=== PATIENT | female | born 1970 | race Caucasian/White ===

== ENCOUNTER 2018-12-16 11:38 | Emergency (ER) | payer OTHER ==
[~2018-12-16] VITALS: Ht 165.1 cm; Wt 93.0 kg
[~2018-12-16 11:38] MED LIST: PRILOSEC OTC20 MG PO
[2018-12-16 11:44] VITALS: BP 141/90
[2018-12-16] MEDS ORDERED: IBUPROFEN 800800 MG PO (16:16)
== END 2018-12-16 12:09 | disposition left against medical advice (07) ==
LOC: M.ERS 11:38
DX: R22.31 Localized swelling, mass and lump, right upper limb (principal); K21.9 Gastro-esophageal reflux disease without esophagitis; F17.200 Nicotine dependence, unspecified, uncomplicated

== ENCOUNTER 2018-12-16 14:22 | Emergency (ER) | payer OTHER ==
[~2018-12-16] VITALS: Ht 165.1 cm; Wt 93.0 kg
[2018-12-16] MEDS ORDERED: IBUPROFEN 800800 MG PO (16:16)
[2018-12-16 16:51] VITALS: BP 134/74
== END 2018-12-16 16:45 | disposition home or self-care (01) ==
LOC: M.ERS 14:22
DX: I80.01 Phlebitis and thrombophlebitis of superficial vessels of right lower extremity (principal); K21.9 Gastro-esophageal reflux disease without esophagitis; F17.200 Nicotine dependence, unspecified, uncomplicated

== ENCOUNTER → 2019-01-12 | Day surgery (SDC) | payer OTHER ==
[~2019-01-12] MED LIST changes: +BAYER CHEWABLE81 MG; +HYDROCODON-ACE1 EAC7 PO; +IBUPROFEN 800800 MG PO; +NORCO 5-325 TA1 EACH PO; +PROTONIX40 M1 PO; +ZOFRAN4 MG PO
--- NOTE | 2019-01-16 14:06 | PATH ---
[facility] [address] [place] [address] PATHOLOGY RPT PROCEDURE Name: DAJUANNEISHA MERCADO Room: [facility].#: [id number] Admission: 01/12/19 Date of : 70 Discharge: Report #: [id number] Path Case #: [id number] [facility] Accession Number: [id number] . 01 Material submitted: . GALLBLADDER . 01 Clinical history: . Pre-op diagnosis: Calculus of gallbladder with acute on chronic cholecystitis without obstruction Post-op diagnosis: Chronic cholecystitis without obstruction . 02 Diagnosis: Gallbladder: - Chronic cholecystitis and cholelithiasis. (KEYANA:pit 01/16/2019) QTP/01/16/2019 . 02 Electronically signed: . Radhames Huang MD, Pathologist NPI- [id number] . 01 Gross description: . The specimen is received in formalin, labeled "Neisha Ventura, gallbladder". Received is an intact gallbladder measuring 6.7 x 2.2 x 2.0 cm in greatest dimensions displaying a pink-mendez serosal surface. Opening the gallbladder reveals a velvety, light michaels mucosa with a gallbladder wall thickness of 0.1 cm. Calculi are present displaying a yellow-green and granular appearance, and no masses or lesions are noted grossly. Qa Manager sections, to include the proximal margin, are submitted in cassette A1. (CAA; 01/13/2019) QAC/QAC . 02 Pathologist provided ICD-10: K80.10 . 02 CPT . 474052 Specimen Comment: A courtesy copy of this report has been sent to Specimen Comment: [phone], . Specimen Comment: Report sent to / DR CHRISTIAN Performed at: [address] [id number] MD Miguel Watson MD Phone: [phone] Performed at: 02 [place] [address] PATHOLOGY RPT PROCEDURE Name: NEISHA VENTURA [facility] [id number] Admission: 01/12/19 Date of : 70 Discharge: Report #: [id number] Path Case #: [id number] [address] [place] [id number] MD Radhames Huang MD Phone: [phone]
--- NOTE | 2019-01-26 00:51 | OP ---
[address] [address] OPERATIVE REPORT Name: DAJUANLEXX ROGELIO Room: [facility].#: [id number] Admission: 01/12/19 Attend Phys: Walter Prescott DO Discharge: Date of : 70 Report #: [id number] THIS REPORT FOR: //name// CC: Walter Chaudhry [facility] DATE OF SERVICE: 01/12/2019 PREOPERATIVE DIAGNOSIS: Symptomatic cholelithiasis. POSTOPERATIVE DIAGNOSIS: Symptomatic cholelithiasis. PROCEDURE: Da Etienne robotic assisted multiport laparoscopic cholecystectomy with Firefly technology. SURGEON: Walter Prescott DO. STROBOROMA OPERATOR: Kevin Frausto DO. SECOND PHOTOGRAVURE PRESS OPERATOR: Student Dr. Terrance Rico. ANESTHESIA: General endotracheal. ESTIMATED BLOOD LOSS: Less than 20 mL. COMPLICATIONS: None. DESCRIPTION OF PROCEDURE: After obtaining proper consents and discussing risks and complications with the patient, she was taken to the operating room, laid on the supine position, administered general anesthesia. She was then prepped and draped in the usual fashion. A timeout was performed. We confirmed the appropriate patient and procedure. Preoperative antibiotics had been given. SCDs were in place. All necessary equipment was within the operating room. We then made a small supraumbilical skin incision with a #11 scalpel blade. This was carried down through the skin into the subcutaneous tissue using electrocautery for hemostasis. Once the fascia was encountered, it was incised along the midline, grasped and elevated with Howard clamps. The peritoneum was then bluntly opened using a hemostat. We then placed 2-0 Vicryl sutures in a [id number] fashion through the fascia to secure the da Etienne camera port, which was then inserted. Once the camera port was inserted, the insufflation was begun. Once insufflation was complete, full visual inspection of the anterior abdominal organs was performed. This revealed a fatty appearing liver. The gallbladder was thick walled and appeared to have a large stone in the body of the gallbladder. The patient was then placed in reverse Trendelenburg position. We then placed an 8-mm da Etienne port in [place] [address] OPERATIVE REPORT Name: LEXX GRAFF Room: [facility]#: [id number] Admission: 01/12/19 Attend Phys: Walter Prescott, DO Discharge: Date of : 70 Report #: [id number] two 8-mm trocars were placed in the right upper quadrant. We then docked the da Etienne robot. Once the robot was docked, we inserted a hook cautery in the left upper quadrant and two Cadiere graspers were placed in the right upper quadrant. I then broke scrub and went on consult. Once on consult, I was able to elevate the gallbladder and identify Laura's pouch. Laura's pouch was then grasped and elevated. I then used the Firefly technology to identify the cystic duct before any dissection of the hepatoduodenal ligament was performed. We could also visualize the common hepatic duct and common bile duct using this and they were well out of the way of the surgical procedure. I then began taking down the hepatoduodenal ligament from the gallbladder downward using both blunt and sharp dissection with the hook cautery. Once I was able to identify the cystic duct as it coursed directly into the gallbladder, I confirmed with Firefly technology and obtained a critical view of safety including the cystic duct, cystic artery, common hepatic duct and common bile duct. This was confirmed both with direct vision and Firefly technology immunofluorescence. I then placed two clips proximally and one clip distally on the cystic duct. The cystic artery was attaching quite high on the gallbladder, so I dissected the gallbladder off further before I clipped the cystic artery proximally and distally and then divided it. The gallbladder was then removed from the liver bed using electrocautery. Once this was done, we checked the cystic duct and cystic artery stumps and liver bed for any leak or bleeding. I again used immunofluorescence with Firefly technology to assure that there was no biliary leaking. Finding none, I then held the gallbladder up, so my assistant dean could grasp it with an alligator grasper. I then rescrubbed and went back to the patient's bedside. The da Etienne robot was undocked. The gallbladder was placed into a 5-mm Endopouch through the umbilical incision. The insufflation was then stopped. All air was released. The trocars were removed. The gallbladder was removed through the umbilical incision within the Endopouch. We then closed the umbilical fascia using the 2 previously placed 0 Vicryl sutures plus 2 additional 0 Vicryl sutures. Skin incisions were all closed using 4-0 Monocryl subcuticular stitches. The wounds were injected with 0.5% Marcaine without epinephrine. The patient was awakened in the operating room and transported to recovery room in stable condition. <ELECTRONICALLY SIGNED> By: Walter Prescott DO 01/26/19 0051 [id number] Prescott DO /nt
== END | disposition home or self-care (01) ==
LOC: M.SUR 06:04
DX: K80.10 Calculus of gallbladder with chronic cholecystitis without obstruction (principal); Z79.82 Long term (current) use of aspirin; Z79.891 Long term (current) use of opiate analgesic; Z79.899 Other long term (current) drug therapy

== ENCOUNTER 2019-01-24 02:52 | Emergency (ER) | payer OTHER ==
[~2019-01-24] VITALS: Ht 165.1 cm; Wt 87.1 kg
[~2019-01-24 02:52] MED LIST changes: -BAYER CHEWABLE81 MG; -HYDROCODON-ACE1 EAC7 PO; -ZOFRAN4 MG PO
[2019-01-24] MEDS ORDERED: BAYER CHEWABLE81 MG (03:07)
[2019-01-24 03:27] LABS: ABSOLUTE BASOPHILS 0.1 thou/uL (0.0-0.2); ABSOLUTE EOSINOPHILS 0.6 thou/uL (0.0-0.7); ABSOLUTE LYMPHOCYTES 4.2 thou/uL (0.8-5.3); ABSOLUTE MONOCYTES 0.7 thou/uL (0.0-1.2); ABSOLUTE NEUTROPHILS 7.3 thou/uL (1.6-8.1); BASOPHILS 0.6 %; EOSINOPHILS 4.7 %; HEMATOCRIT 46.2 % (37.0-47.0); HEMOGLOBIN 15.8 gm/dL (12.0-15.0); LYMPHOCYTES 32.6 %; MCH 29.9 pg (26.0-34.0); MCHC 34.3 g/dL (28.0-37.0); MCV 87.2 fL (80.0-100.0); MONOCYTES 5.3 %; MPV 8.4 fl. (7.2-11.1); NUCLEATED RBCS 0 /100WBC; PLATELET COUNT* 332 thou/uL (150-400); POLYS 56.8 %; RBC 5.29 mil/uL (4.20-5.00); RDW-CV 12.9 % (10.5-14.5); WBC 12.8 thou/uL (4.0-11.0)
[2019-01-24 03:42] LABS: ALBUMIN 3.9 g/dL (3.4-5.0); ALKALINE PHOSPHATASE 129 U/L (46-116); ANION GAP 10 mmol/L (7-16); BUN 14 mg/dL (7-18); CALCIUM 9.1 mg/dL (8.5-10.1); CHLORIDE 102 mmol/L (98-107); CO2 30 mmol/L (21-32); CREATININE 0.9 mg/dL (0.6-1.3); GLUCOSE 112 mg/dL (70-99); LIPASE 68 U/L (73-393); POTASSIUM 3.8 mmol/L (3.5-5.1); SGOT 75 U/L (15-37); SGPT 53 U/L (30-65); SODIUM 142 mmol/L (136-145); TOTAL BILIRUBIN 0.5 mg/dL (<0.1-1.0); TOTAL PROTEIN 7.4 g/dL (6.4-8.2); TROPONIN-I LEVEL <0.06 ng/mL (<0.06)
[2019-01-24 04:26] LABS: URINE BILIRUBIN NEGATIVE (Negative); URINE BLOOD NEGATIVE (Negative); URINE CLARITY CLEAR; URINE COLOR YELLOW; URINE GLUCOSE-RANDOM NEGATIVE (Negative); URINE KETONES NEGATIVE (Negative); URINE LEUKOCYTES-REFLEX NEGATIVE (Negative); URINE NITRITE-REFLEX NEGATIVE (Negative); URINE PROTEIN NEGATIVE (Negative); URINE UROBILINOGEN 0.2 E.U./dl (0.2-1.0)
[2019-01-24] MEDS ORDERED: ZOFRAN4 MG PO (06:11)
[2019-01-24] MEDS ORDERED: HYDROCODON-ACE1 EAC7 PO (06:11)
[2019-01-24 06:25] VITALS: BP 115/68
--- NOTE | 2019-01-24 11:38 | EKG ---
[place] [address] ELECTROCARDIOGRAM REPORT Name: DAJUANLEXX ROGELIO Room: [facility]#: [id number] Admission: 01/24/19 Attend Phys: Discharge: 01/24/19 Date of : 70 Report #: [id number] THIS REPORT FOR: //name// [facility] Test Date: 2019-01-24 Test Time: 03:01:09 Pat Name: LEXX GRAFF Department: Room: Gender: F Computer Numerical Control Grinder: Blanca WAGNER : 1970 Requested By: Tavo Serna Order Number: [id number] MD: Chidi Whitehead Measurements Intervals [place] Rate: 90 P: 68 WI: 157 QRS: 53 QRSD: 94 T: 57 QT: 375 QTc: 459 Interpretive Statements Sinus rhythm Low voltage, precordial leads Baseline wander in lead(s) V4,V5 No previous ECG available for comparison Electronically Signed On 01-24-2019 11:37:29 CDT by Chidi Whitehead [email or web address] <ELECTRONICALLY SIGNED> By: Chidi Whitehead MD, [facility] 01/24/19 1137 0 0 Chidi Whitehead MD, FACC /EPI
== END 2019-01-24 06:26 | disposition home or self-care (01) ==
LOC: M.ERS 02:52
PROVIDERS: Emergency Medicine
DX: R10.13 Epigastric pain (principal); K21.9 Gastro-esophageal reflux disease without esophagitis; F17.210 Nicotine dependence, cigarettes, uncomplicated; Z98.890 Other specified postprocedural states; Z90.49 Acquired absence of other specified parts of digestive tract